=== PATIENT | male | born 1940 | race Caucasian/White ===

== ENCOUNTER → 2019-03-22 | Outpatient (CLI) | payer MEDICARE ==
--- NOTE | 2019-03-22 16:58 | Diagnostic Imaging Report ---
PROCEDURE: CT head without contrast. TECHNIQUE: Multiple contiguous axial images were obtained through the brain without the use of intravenous contrast. Auto Exposure Controls were utilized during the CT exam to meet ALARA standards for radiation dose reduction. INDICATION: Syncope COMPARISON: There are no prior studies available for comparison. FINDINGS: There is no mass, shift of the midline or hemorrhage to suggest an acute intracranial abnormality. The normal tentorial blush is noted. The ventricles are not abnormally dilated. There is cortical atrophy present. The degree of atrophy is consistent with the patient's age. The bone windows show there are 2 isabella holes with orthopedic hardware along the outer table of the isabella holes in the left frontal and parietal bones. There is no fracture or acute bony abnormality noted. The orbits and sinuses were not visualized in their entirety. There is mild mucosal thickening of the ethmoid sinuses. The sinuses are otherwise generally clear. The orbits, where visualized, show no acute abnormality. IMPRESSION: 1. There is no evidence for an acute intracranial abnormality. 2. If clinical concern regarding an underlying abnormality persists, then MRI would be recommended for further study. 3. There are postsurgical changes involving the left frontal and parietal bones. If previous exams are available, they would be helpful for comparison. Dictated by: Dictated on workstation # [id number]
== END ==
LOC: RAD FS 13:49
PROVIDERS: ATTEND Family Medicine
DX: R55 Syncope and collapse (principal); Z98.890 Other specified postprocedural states
CPT/HCPCS: 70450

== ENCOUNTER → 2019-03-23 | Outpatient (CLI) | payer MEDICARE | LOC: CARD 11:16 → EDUNIT# 11:30 | PROVIDERS: ATTEND Family Medicine | DX: R00.1 Bradycardia, unspecified (principal) | CPT/HCPCS: 93225; 93226 ==

== ENCOUNTER → 2021-12-16 | Outpatient (CLI) | payer MEDICARE ==
--- NOTE | 2021-12-16 17:14 | Diagnostic Imaging Report ---
INDICATION: Back pain. FINDINGS: There is slight anterolisthesis of L4 on L5 which appears to be on a degenerative basis. There is multilevel degenerative disc disease. Vertebral body heights are well maintained. There is no acute fracture. 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 Dictated by: Dictated on workstation # [id number]
== END ==
LOC: RAD FS 16:54
PROVIDERS: ATTEND Nurse Practitioner Family
DX: M47.816 Spondylosis without myelopathy or radiculopathy, lumbar region (principal); M43.16 Spondylolisthesis, lumbar region; M51.36 Other intervertebral disc degeneration, lumbar region
CPT/HCPCS: 72100

== ENCOUNTER 2023-01-05 13:01 | Emergency (ER) | payer MEDICARE ==
[~2023-01-05] VITALS: Ht 185 cm; Wt 84.0 kg
[2023-01-05] MEDS ORDERED: ONDANSETRON 4 MG/2 ML (SDV) Z0FRAN IVP ONE (13:45)
[2023-01-05] MEDS ORDERED: MECLIZINE 25 MG (ANTIVERT) TAB PO ONE (13:45)
[2023-01-05 13:58] LABS: BASOPHILS % (AUTO) 1 % (0-10); EOSINOPHILS # (AUTO) 0.1 10^3/uL (0.0-0.3); EOSINOPHILS % (AUTO) 2 % (0-10); HEMATOCRIT 45 % (40-54); HEMOGLOBIN 15.4 g/dL (13.3-17.7); LYMPHOCYTES # (AUTO) 0.6 10^3/uL (1.0-4.0); LYMPHOCYTES % (AUTO) 11 % (12-44); MEAN CORPUSCULAR HEMOGLOBIN 32 pg (25-34); MEAN CORPUSCULAR HGB CONC 34 g/dL (32-36); MEAN CORPUSCULAR VOLUME 94 fL (80-99); MEAN PLATELET VOLUME 12.6 fL (9.0-12.2); MONOCYTES # (AUTO) 0.3 10^3/uL (0.0-1.0); MONOCYTES % (AUTO) 6 % (0-12); NEUTROPHILS # (AUTO) 4.6 10^3/uL (1.8-7.8); NEUTROPHILS % (AUTO) 81 % (42-75); PLATELET COUNT 156 10^3/uL (130-400); WHITE BLOOD COUNT 5.6 10^3/uL (4.3-11.0)
[2023-01-05 14:10] LABS: CALCIUM 9.4 MG/DL (8.5-10.1); MAGNESIUM 2.3 MG/DL (1.6-2.4); POTASSIUM 3.5 MMOL/L (3.6-5.0)
--- NOTE | 2023-01-05 14:10 | ED General ---
General Chief Complaint: General Problems/Pain Stated Complaint: ELEV BP Nursing Triage Note: PT REPORTS HIS BLOOD PRESSURE AT HOME WAS 214/85 AND HE FELT DIZZY. REPORTS THE DIZZINESS STARTED YESTERDAY. Source of Information: Patient Exam Limitations: No Limitations History of Present Illness Date Seen by Provider: Jan 05, 2023 Time Seen by Provider: 13:04 Initial Comments This 82-year-old gentleman presents to the emergency room accompanied by his son with concerns about hypertension and dizziness. He felt dizzy this morning and unsteady on his feet prompting him to check his blood pressure. At home his blood pressure was 214/85. During triage in the ER his blood pressure is 196/79. His dizziness is described vaguely. It is perhaps a vertigo type of sensation. He does not describe it as lightheadedness. It is worse with movement, particularly when raising his head up from a forward flexed position. He has not noted that movement to either side causes more dizziness than the other. The dizziness seems to be new today. He denies any other symptoms such as chest pain, shortness of breath, fever, etc. His primary care provider is Dr. Garcia. He reports good compliance with his blood pressure medication which includes lisinopril 20 mg twice daily and hydrochlorothiazide 25 mg daily. He is independently ambulatory today but feels more comfortable using a cane, which is not typical for him. Allergies and Home Medications Allergies Coded Allergies: No Known Drug Allergies (Unverified , 01/05/23) Patient Home Medication List Home Medication List Reviewed: Yes Meclizine HCl (Meclizine HCl) 12.5 Mg Tablet, 12.5 MG PO TID PRN for DIZZINESS Prescribed by: NANCIE WALTER on 01/05/23 161 Ondansetron (Ondansetron Odt) 4 Mg Tab.rapdis, 4 MG SL Q4H PRN for NAUSEA/VOMITING Prescribed by: NANCIE WALTER on 01/05/23 1610 Review of Systems Review of Systems Constitutional: no symptoms reported EENTM: no symptoms reported Respiratory: no symptoms reported Cardiovascular: see HPI Gastrointestinal: no symptoms reported Genitourinary: no symptoms reported Musculoskeletal: no symptoms reported Skin: no symptoms reported Psychiatric/Neurological: See HPI Hematologic/Lymphatic: No Symptoms Reported Past Ujgmwrn-Flmqzt-Bzeuqv Hx Patient Social History Tobacco Use?: No Use of E-Cig and/or Vaping dev: No Substance use?: No Alcohol Use?: No Pt feels they are or have been: No Immunizations Up To Date First/Initial COVID19 Vaccinat: UNK Second COVID19 Vaccination Juan M: UNK 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 oz. kg; 24.00 BMI Method: General Appearance: No Apparent Distress, WD/WN HEENT: PERRL/EOMI, TMs Normal, Normal ENT Inspection, Pharynx Normal Neck: Normal Inspection; No Carotid Bruit, No JVD Respiratory: Lungs Clear, Normal Breath Sounds, No Accessory Muscle Use Cardiovascular: Regular Rate, Rhythm, No Edema, No Murmur, Normal Peripheral Pulses Extremity: Normal Inspection, No Pedal Edema Neurologic/Psychiatric: Alert, Oriented x3, No Motor/Sensory Deficits, Normal Mood/Affect, applications programmer analyst II-XII Norm as Tested, Other (Normal uytwxj-zl-nnaw and rcwy-wb-pquo) Skin: Normal Color, Warm/Dry Progress/Results/Core Measures Suspected Sepsis SIRS Temperature: Pulse: 101 Respiratory Rate: 16 Laboratory Tests 01/05/23 13:42: White Blood Count 5.6 Blood Pressure 196 /79 Mean: 118 Laboratory Tests 01/05/23 13:42: Creatinine 0.96, Platelet Count 156 Results/Orders Lab Results Laboratory Tests Test 01/05/23 13:42 01/05/23 14:50 Range/Units White Blood Count 5.6 4.3-11.0 10^3/uL Red Blood Count 4.84 4.30-5.52 10^6/uL Hemoglobin 15.4 13.3-17.7 g/dL Hematocrit 45 40-54 % Mean Corpuscular Volume 94 80-99 fL Mean Corpuscular Hemoglobin 32 25-34 pg Mean Corpuscular Hemoglobin Concent 34 32-36 g/dL Red Cell Distribution Width 13.2 10.0-14.5 % Platelet Count 156 130-400 10^3/uL Mean Platelet Volume 12.6 H 9.0-12.2 fL Immature Granulocyte % (Auto) 0 % Neutrophils (%) (Auto) 81 H 42-75 % Lymphocytes (%) (Auto) 11 L 12-44 % Monocytes (%) (Auto) 6 0-12 % Eosinophils (%) (Auto) 2 0-10 % Basophils (%) (Auto) 1 0-10 % Neutrophils # (Auto) 4.6 1.8-7.8 10^3/uL Lymphocytes # (Auto) 0.6 L 1.0-4.0 10^3/uL Monocytes # (Auto) 0.3 0.0-1.0 10^3/uL Eosinophils # (Auto) 0.1 0.0-0.3 10^3/uL Basophils # (Auto) 0.0 0.0-0.1 10^3/uL Immature Granulocyte # (Auto) 0.0 0.0-0.1 10^3/uL Sodium Level 137 135-145 MMOL/L Potassium Level 3.5 L 3.6-5.0 MMOL/L Chloride Level 98 98-107 MMOL/L Carbon Dioxide Level 29 21-32 MMOL/L Anion Gap 10 5-14 MMOL/L Blood Urea Nitrogen 16 7-18 MG/DL Creatinine 0.96 0.60-1.30 MG/DL Estimat Glomerular Filtration Rate 78 BUN/Creatinine Ratio 17 Glucose Level 143 H 70-105 MG/DL Calcium Level 9.4 8.5-10.1 MG/DL Magnesium Level 2.3 1.6-2.4 MG/DL TSH [place] Testing 0.86 0.35-4.94 UIU/ML Urine Color YELLOW Urine Clarity CLEAR Urine pH 8.0 5-9 Urine Specific [place] 1.020 1.016-1.022 Urine Protein NEGATIVE NEGATIVE Urine Glucose (UA) NEGATIVE NEGATIVE Urine Ketones NEGATIVE NEGATIVE Urine Nitrite NEGATIVE NEGATIVE Urine Bilirubin NEGATIVE NEGATIVE Urine Urobilinogen 0.2 < = 1.0 MG/DL Urine Leukocyte Esterase NEGATIVE NEGATIVE Urine RBC (Auto) NEGATIVE NEGATIVE Urine RBC RARE /HPF Urine WBC 0-2 /HPF Urine Squamous Epithelial Cells RARE /HPF Urine Crystals NONE /LPF Urine Bacteria NEGATIVE /HPF Urine Casts NONE /LPF Urine Mucus SMALL H /LPF Urine Culture Indicated NO My Orders Orders - NANCIE MULLEN MD Basic Metabolic Panel (01/05/23 13:31) Cbc With Automated Diff (01/05/23 13:31) Magnesium (01/05/23 13:31) Thyroid Analyzer (01/05/23 13:31) Ua Culture If Indicated (01/05/23 13:31) Ed Iv/Invasive Line Start (01/05/23 13:31) Meclizine Tablet (Antivert Tablet) (01/05/23 13:45) Ondansetron Injection (Zofran Injectio (01/05/23 13:45) Ct Angio Head/Neck (01/05/23 14:41) Iohexol Injection (Omnipaque 350 Mg/Ml 1 (01/05/23 14:45) Received Contrast (Hold Metformin- Contr (01/05/23 14:45) Sodium Chloride Flush (Catheter Flush Sy (01/05/23 14:45) Ns (Ivpb) (Sodium Chloride 0.9% Ivpb Bag (01/05/23 14:45) Medications Given in ED Vital Signs/I&O 01/05/23 01/05/23 13:05 16:13 Temp 35.9 35.9 Pulse 101 92 Resp 16 16 B/P (MAP) 196/79 (118) 161/64 Pulse Ox 100 100 O2 Delivery Room Air Room Air Capillary Refill : Less Than 3 Seconds Blood Pressure Mean: 118 Progress Note #1: Time: 15:00 Progress Note Patient received Zofran and meclizine 12.5 mg. Dizziness is reduced. [place]- Hall[place] test was negative bilaterally. Blood pressure has not improved much with rest and time. I discussed options with the patient including imaging carotid arteries. CT angiogram of head and neck was offered. He would like to proceed with CT scan. BMP was obtained and reviewed. There were no significant acute abnormalities. CT angiogram is pending at this time. Progress Note #2: Progress Note CT angiogram was unremarkable. I have advised maximizing his current blood pressure medication by increasing hydrochlorothiazide to 50 mg daily. You may tried his blood pressure over the next 1 to 2 weeks and follow-up with his primary care provider to determine if further changes need to be made to his blood pressure management. CT results were reviewed with patient. Plan was discussed. See discharge instructions for further discussion. Prescriptions were provided for meclizine and Zofran for symptom management. ECG Initial ECG Impression Date: Jan 05, 2023 Initial ECG Impression Time: 14:28 Initial ECG Rate: 72 Initial ECG Rhythm: Normal Sinus Comment Normal sinus rhythm with no ST elevation or depression. PVC noted. No significant interval changes or axis deviation. Diagnostic Imaging Diagonstic Imaging: CT Plain Films/CT/US/NM/MRI: other (Angiogram head and neck) Comments NAME: RYAN CHAU [facility] REC#: [id number] PT STATUS: REG ER : 1940 PHYSICIAN: NANCIE MULLEN MD ADMIT DATE: 01/05/23/ER FS Signed Date of Exam:01/05/23 CT ANGIO HEAD/NECK PROCEDURE: CT angiography of the head and CT angiography of the neck with and without contrast. TECHNIQUE: Contiguous noncontrast images were obtained from the skull base through the vertex. After intravenous contrast administration, helical CT angiography of the neck was performed. Source data was reformatted into 3D MIP projections. Delayed post contrast acquisition was also obtained. Auto Exposure Controls were utilized during the CT exam to meet ALARA standards for radiation dose reduction. INDICATION: Hypertension. Dizziness. COMPARISON: 03/22/2019. FINDINGS: CTA Neck: The visualized portions of the aortic arch demonstrate no evidence of aneurysm or dissection. There is conventional branching pattern of the great vessels of the aorta. The brachiocephalic artery is normal in course and caliber. The right and left common carotid origins are unremarkable. The origin of the left subclavian artery is patent. The common carotid arteries and internal carotid arteries demonstrate a tortuous course. There is calcified atherosclerotic plaque in the bilateral carotid bulbs and proximal internal carotid arteries without flow-limiting stenosis. No evidence of dissection in the carotid systems. The external carotid arteries are patent and unremarkable. The left vertebral artery is dominant. The origin of the right vertebral artery is seen and is unremarkable. The origin of the left vertebral artery is seen and is unremarkable. There is no focal stenosis seen within the neck. There is no dissection. The osseous structures of the cervical spine are unremarkable. Included views through the lung apices demonstrate no focal consolidation. CTA brain: Atherosclerotic plaque is seen in the smart of the bilateral terminal internal carotid arteries without significant stenosis. No stenosis is seen in the bilateral anterior, middle, and posterior cerebral arteries. No evidence of aneurysm the [place]. In the posterior circulation, both of the vertebral arteries demonstrate normal opacification. The right vertebral artery ends in PICA. Both the right and left PICA arteries are identified. The basilar artery is normal in course and caliber. The terminal branch vessels including the superior cerebellar arteries unremarkable. CT head: No large acute territorial ischemia, mass, or hemorrhage. No midline shift or mass effect. The ventricles, cortical sulci, and basilar cisterns are patent and unremarkable. The calvarium is intact. Prior craniotomy changes are visualized on the left. Mucosal thickening is seen in the left maxillary sinuses and bilateral ethmoid sinuses. The mastoid air cells are clear. IMPRESSION: 1. No stenosis or aneurysm in the [place]. No large vessel occlusion. 2. No stenosis or dissection the bilateral carotid and vertebral arteries. 3. No large acute territorial ischemia. No acute hemorrhage or mass. Dictated by: Dictated on workstation # [id number] Dict: 01/05/23 1513 Trans: 01/05/23 1541 [id number] Interpreted by: ERICA SHAFER DO Electronically signed by: ERICA SHAFER DO 01/05/23 1541 Departure Impression Primary Impression: Dizziness Additional Impression: Hypertension Qualified Codes: I10 - Essential (primary) hypertension Disposition: 01 HOME, SELF-CARE Condition: Improved Departure-Patient Inst. Decision time for Depature: 16:03 Referrals: EMILY GARCIA MD (PCP) Primary Care Physician Patient Instructions: Dizziness, Adult ED, High Blood Pressure ED, Vertigo ED Add. Discharge Instructions: The exact cause of your dizziness is uncertain. Causes may include high blood pressure, viral illness, or vertigo. For dizziness you may try taking meclizine as prescribed. Please be advised this medication may make you a bit drowsy so use with caution. Avoid driving, using machinery, or making important decisions while on meclizine. If you have nausea associated with your dizziness, use the Zofran (ondansetron) as prescribed. This is a dissolvable tablet that is placed under the tongue. Drink plenty of clear liquids to stay well-hydrated. You should try maximizing your current blood pressure medications before adding new medications. For this reason, I recommend that you increase hydrochlorothiazide to 50 mg daily. You may start by adding another 25 mg tablet when you return home this afternoon. Monitor your blood pressure for 1 t o 2 weeks and then follow-up with Dr. Garcia. Check your blood pressure at least a few times per week or as much as a couple times a day. If you are noting recurrent blood pressures greater than 180 on the top number or greater than 110 on the bottom number, return to the emergency room. If you are noticing blood pressures higher than this, wait 30 minutes to an hour and rechec k. If it is consistently above these numbers, return to the ER. Avoid things that may elevate your blood pressure unnecessarily such as excessive salt, decongestant medications, diet medications, energy pills or drinks, medications for attention deficit, nicotine, etc. Try taking your simvastatin for cholesterol at night. Enzymes that generate cholesterol are more active at night. Therefore it is better to take cholesterol medicine at night. Call with questions or concerns. All discharge instructions reviewed with patient and/or family. Voiced understanding. Scripts Ondansetron (Ondansetron Odt) 4 Mg Tab.rapdis 4 MG SL Q4H PRN for NAUSEA/VOMITING, #10 TAB Prov: NANCIE MULLEN MD 01/05/23 Meclizine HCl (Meclizine HCl) 12.5 Mg Tablet 12.5 MG PO TID PRN for DIZZINESS, #10 TAB Prov: NANCIE MULLEN MD 01/05/23 Copy Copies To 1: EMILY GARCIA MD, JOSHUA T MD Jan 05, 2023 14:10
[2023-01-05 14:17] LABS: CREATININE SERUM 0.96 MG/DL (0.60-1.30)
[2023-01-05] MEDS ORDERED: HOLD METFORMIN - RECEIVED CONTRAST 20 ML VIAL IV SCH (14:45)
[2023-01-05] MEDS ORDERED: IOHEXOL 350 MG/ML 100 ML (OMNIPAQUE 350) VIAL IV ONE (14:45)
[2023-01-05] MEDS ORDERED: CATHETER FLUSH 10 ML SYR IV PRN (14:45)
[2023-01-05] MEDS ORDERED: NS 100 ML (IVPB) BAG IV ONE (14:45)
[2023-01-05 14:54] LABS: BILIRUBIN,URINE NEGATIVE (NEGATIVE); CLARITY,URINE CLEAR; COLOR,URINE YELLOW; GLUCOSE, URINE (UA) NEGATIVE (NEGATIVE); KETONES,URINE NEGATIVE (NEGATIVE); LEUKOCYTE ESTERASE ,URINE NEGATIVE (NEGATIVE); NITRITE,URINE NEGATIVE (NEGATIVE); PROTEIN,URINE NEGATIVE (NEGATIVE)
[2023-01-05 15:03] LABS: BACTERIA,URINE NEGATIVE /HPF; RBC,URINE RARE /HPF; SQUAMOUS EPITHELIAL CELL,UR RARE /HPF; WBC,URINE 0-2 /HPF
--- NOTE | 2023-01-05 15:28 | Diagnostic Imaging Report ---
PROCEDURE: CT angiography of the head and CT angiography of the neck with and without contrast. TECHNIQUE: Contiguous noncontrast images were obtained from the skull base through the vertex. After intravenous contrast administration, helical CT angiography of the neck was performed. Source data was reformatted into 3D MIP projections. Delayed post contrast acquisition was also obtained. Auto Exposure Controls were utilized during the CT exam to meet ALARA standards for radiation dose reduction. INDICATION: Hypertension. Dizziness. COMPARISON: 03/22/2019. FINDINGS: CTA Neck: The visualized portions of the aortic arch demonstrate no evidence of aneurysm or dissection. There is conventional branching pattern of the great vessels of the aorta. The brachiocephalic artery is normal in course and caliber. The right and left common carotid origins are unremarkable. The origin of the left subclavian artery is patent. The common carotid arteries and internal carotid arteries demonstrate a tortuous course. There is calcified atherosclerotic plaque in the bilateral carotid bulbs and proximal internal carotid arteries without flow-limiting stenosis. No evidence of dissection in the carotid systems. The external carotid arteries are patent and unremarkable. The left vertebral artery is dominant. The origin of the right vertebral artery is seen and is unremarkable. The origin of the left vertebral artery is seen and is unremarkable. There is no focal stenosis seen within the neck. There is no dissection. The osseous structures of the cervical spine are unremarkable. Included views through the lung apices demonstrate no focal consolidation. CTA brain: Atherosclerotic plaque is seen in the smart of the bilateral terminal internal carotid arteries without significant stenosis. No stenosis is seen in the bilateral anterior, middle, and posterior cerebral arteries. No evidence of aneurysm the [place]. In the posterior circulation, both of the vertebral arteries demonstrate normal opacification. The right vertebral artery ends in PICA. Both the right and left PICA arteries are identified. The basilar artery is normal in course and caliber. The terminal branch vessels including the superior cerebellar arteries unremarkable. CT head: No large acute territorial ischemia, mass, or hemorrhage. No midline shift or mass effect. The ventricles, cortical sulci, and basilar cisterns are patent and unremarkable. The calvarium is intact. Prior craniotomy changes are visualized on the left. Mucosal thickening is seen in the left maxillary sinuses and bilateral ethmoid sinuses. The mastoid air cells are clear. IMPRESSION: 1. No stenosis or aneurysm in the [place]. No large vessel occlusion. 2. No stenosis or dissection the bilateral carotid and vertebral arteries. 3. No large acute territorial ischemia. No acute hemorrhage or mass. Dictated by: Dictated on workstation # [id number]
[2023-01-05] MEDS ORDERED: MECL-215 PO (16:10)
[2023-01-05] MEDS ORDERED: ONDA4TAB11 SL (16:10)
[2023-01-05 16:13] VITALS: BP 161/64
[2023-01-05 21:17] LABS: TSH (THYROID ANALYZER) 0.86 UIU/ML (0.35-4.94)
== END 2023-01-05 16:14 | disposition home or self-care (01) ==
LOC: EDUNIT# 13:01 → ER FS 13:02
DX: I10 Essential (primary) hypertension (principal); Z79.899 Other long term (current) drug therapy
CPT/HCPCS: 36415; 70496; 70498; 80048; 81000; 83735; 84443; 85025; Q9967